=== PATIENT | female | born 1970 | race Two or more races ===

== ENCOUNTER 2018-08-09 17:49 | Emergency (ER) | payer MEDICAID, OTHER ==
[~2018-08-09] VITALS: Ht 162.6 cm; Wt 64.4 kg
[2018-08-09 17:56] VITALS: BP 124/74
[2018-08-09 18:48] LABS: APPEARANCE,URINE Clear (CLEAR); BILIRUBIN,URINE Negative (NEGATIVE); BLOOD, URINE Negative Ery/uL (NEGATIVE); COLOR,URINE Yellow (YELLOW); KETONES,URINE Negative (NEGATIVE); LEUKOCYTE ESTERASE ,URINE Negative (NEGATIVE); NITRITE, URINE Negative (NEGATIVE); PH,URINE 7.5 (5.0-8.0); PROTEIN,URINE Negative (NEGATIVE); UGLUCOSE Negative (NEGATIVE); UROBILINOGEN,URINE 0.2 EU/dL (0.2)
== END 2018-08-09 19:23 | disposition home or self-care (01) ==
LOC: ER 17:49
DX: N89.8 Other specified noninflammatory disorders of vagina (principal)
CPT/HCPCS: 81000-TC; 84703-TC; 87210-TC

== ENCOUNTER 2019-07-03 20:10 | Emergency (ER) | payer OTHER, MEDICAID ==
[~2019-07-03] VITALS: Ht 170.2 cm; Wt 70.3 kg
[2019-07-03 20:19] VITALS: BP 133/78
== END 2019-07-03 21:24 | disposition home or self-care (01) ==
LOC: ER 20:12
DX: S30.861A Insect bite (nonvenomous) of abdominal wall, initial encounter (principal); S80.862A Insect bite (nonvenomous), left lower leg, initial encounter; S80.861A Insect bite (nonvenomous), right lower leg, initial encounter; S40.862A Insect bite (nonvenomous) of left upper arm, initial encounter; S40.861A Insect bite (nonvenomous) of right upper arm, initial encounter; W57.XXXA Bitten or stung by nonvenomous insect and other nonvenomous arthropods, initial encounter; Y93.89 Activity, other specified; Y92.89 Other specified places as the place of occurrence of the external cause; Y99.8 Other external cause status

== ENCOUNTER 2019-07-05 23:15 | Emergency (ER) | payer OTHER, MEDICAID ==
[~2019-07-05] VITALS: Ht 165.1 cm; Wt 63.5 kg
[2019-07-05 23:18] VITALS: BP 123/80
== END 2019-07-06 00:20 | disposition home or self-care (01) ==
LOC: ER 23:20
DX: Z76.0 Encounter for issue of repeat prescription (principal); S30.861D Insect bite (nonvenomous) of abdominal wall, subsequent encounter; S80.862D Insect bite (nonvenomous), left lower leg, subsequent encounter; S80.861D Insect bite (nonvenomous), right lower leg, subsequent encounter; S40.862D Insect bite (nonvenomous) of left upper arm, subsequent encounter; S40.861D Insect bite (nonvenomous) of right upper arm, subsequent encounter; W57.XXXD Bitten or stung by nonvenomous insect and other nonvenomous arthropods, subsequent encounter

== ENCOUNTER 2019-08-11 21:20 | Emergency (ER) | payer MEDICAID, OTHER ==
[~2019-08-11] VITALS: Ht 162.6 cm; Wt 67.1 kg
[2019-08-11 21:20] VITALS: BP 117/78
[2019-08-11] MEDS ORDERED: DEXAMETHASONE SOLN 5 MG/5 ML UDC ONE ×2 (21:43)
--- NOTE | 2019-08-11 21:49 | NUR ---
Patient discharged to home in stable condition. Written and verbal after care instructions given. Patient verbalizes understanding of instruction. Pt ambulatory with a steady gait
[2019-08-11] MEDS ORDERED: DEXAMETHASONE SOD PHOSPHATE 10 MG/ML VIAL MC ONE (22:00)
== END 2019-08-11 21:50 | disposition home or self-care (01) ==
LOC: ER 21:24
DX: J03.90 Acute tonsillitis, unspecified (principal)
CPT/HCPCS: 87070; 87880; 99283; J8540 ×2; 86403-TC